=== PATIENT | female | born 1995 ===

== ENCOUNTER → 2024-04-28 | Outpatient (CLI) | payer OTHER | LOC: LAB SHORT 13:24 → LAB 13:24 | DX: O09.90 Supervision of high risk pregnancy, unspecified, unspecified trimester (principal); Z3A.00 Weeks of gestation of pregnancy not specified | CPT/HCPCS: 87081; 87150 ==

== ENCOUNTER 2024-05-19 07:00 | Inpatient (IN) | payer OTHER ==
[~2024-05-19] VITALS: Ht 162.6 cm; Wt 88.2 kg
[2024-05-19] VITALS (44 sets, daily range): BP systolic 97–147; BP diastolic 52–84
[2024-05-19] MEDS ORDERED: OXYTOCIN/RINGER'S LACTATE 500 ML IV SCH ×2 (07:20→18:00)
[2024-05-19] MEDS ORDERED: FentaNYL Citrate 50 MCG/ML 2 ML Injection IV PRN (07:20)
[2024-05-19] MEDS ORDERED: Lactated Ringer's 1,000 ML IV SCH ×4 (07:20→18:00)
[2024-05-19] MEDS ORDERED: ePHEDrine Sulfate 50 MG/ML 1ML Injection XX PRN (07:25)
[2024-05-19] MEDS ORDERED: FentaNYL 2mcg/ml-Bup 0.1% Epd 250 ML EPI PRN (07:25)
[2024-05-19 07:59] LABS: BASOPHILS ABSOLUTE AUTO 0.03 K/mm3 (0.00-0.23); BASOPHILS PERCENT AUTO 1 % (0-2); EOSINOPHILS ABSOLUTE AUTO 0.06 K/mm3 (0.00-0.68); EOSINOPHILS PERCENT AUTO 1 % (0-6); Hematocrit 37.3 % (33.0-51.0); Hemoglobin 12.9 g/dL (11.5-16.0); IMMATURE GRAN ABSOLUTE AUTO 0.02 K/mm3 (0.00-0.10); IMMATURE GRAN PERCENT AUTO 0 % (0-1); LYMPHOCYTES ABSOLUTE AUTO 1.01 K/mm3 (0.84-5.20); LYMPHOCYTES PERCENT AUTO 19 % (21-46); MONOCYTES ABSOLUTE AUTO 0.29 K/mm3 (0.16-1.47); MONOCYTES PERCENT AUTO 5 % (4-13); Mean Corpuscular HGB 31.1 pg (26.0-34.0); Mean Corpuscular HGB Conc 34.6 g/dL (31.5-36.5); Mean Corpuscular Volume 90 fL (80-100); Mean Platelet Volume 9.3 fL (9.1-12.4); NEUTROPHILS ABSOLUTE AUTO 4.02 K/mm3 (1.96-9.15); NEUTROPHILS PERCENT AUTO 74 % (41-73); Platelet Count 191 K/mm3 (150-400); RDW Coefficient Variation 13.7 % (11.7-14.2); RDW Standard Deviation 44.3 fL (35.1-46.3); Red Blood Cell Count 4.15 M/mm3 (3.80-5.20); White Blood Cell Count 5.43 K/mm3 (4.00-11.30)
[2024-05-19] MEDS ORDERED: Acetaminophen 325 MG TABLET PO PRN ×2 (08:20→18:05)
[2024-05-19] MEDS ORDERED: Calcium Carbonate 500 MG Tab Chew PO PRN (08:20)
[2024-05-19] MEDS ORDERED: Ondansetron HCl 2 MG / ML 2ML Vial IV PRN ×3 (08:20→11:45)
[2024-05-19] MEDS ORDERED: Bupivacaine HCl 2.5 MG/ML 10ML P/F Injection ONE (11:34)
[2024-05-19] MEDS ORDERED: Naloxone HCl 0.4MG / ML 1ML Vial IV PRN (11:45)
[2024-05-19] MEDS ORDERED: ePHEDrine Sulfate 50 MG/ML 1ML Injection IV PRN (11:45)
[2024-05-19] MEDS ORDERED: Ketorolac Tromethamine 30mg Vial IV PRN ×2 (11:55→17:55)
[2024-05-19] MEDS ORDERED: Tranexamic Acid 100 ML IV ONE ×2 (17:21→18:20)
[2024-05-19] MEDS ORDERED: Ibuprofen 400 MG Tab PO PRN (17:55)
[2024-05-19] MEDS ORDERED: Methylergonovine Maleate 0.2MG / ML 1ML Amp IM PRN (18:00)
[2024-05-19] MEDS ORDERED: Lanolin Cream TOP PRN (18:00)
[2024-05-19] MEDS ORDERED: Docusate Sodium 100 MG Cap PO PRN (18:00)
[2024-05-19] MEDS ORDERED: Witch Hazel/Glycerin PADS TOP PRN (18:00)
[2024-05-19] MEDS ORDERED: FLU VACC TS2024-25(6MOS UP)/PF 45 MCG/0.5 ML SYRINGE IM SCH (18:00)
[2024-05-19] MEDS ORDERED: Benzocaine Topical Anesthetic Spray 60GM TOP PRN (18:05)
[2024-05-19] MEDS ORDERED: Misoprostol 200 MCG Tab BC PRN (18:20)
[2024-05-19] MEDS ORDERED: Misoprostol 200 MCG Tab PO ONE (19:00)
[2024-05-19] MEDS ORDERED: Methylergonovine Maleate 0.2MG / ML 1ML Amp IM ONE (19:00)
--- NOTE | 2024-05-19 19:29 | NUR ---
AGREE WITH ASSESSMENT AND CHARTING [facility]
[2024-05-20 04:46] VITALS: BP 127/79
[2024-05-20 06:26] LABS: Hematocrit 33.9 % (33.0-51.0); Hemoglobin 11.7 g/dL (11.5-16.0); Mean Corpuscular HGB 31.2 pg (26.0-34.0); Mean Corpuscular HGB Conc 34.5 g/dL (31.5-36.5); Mean Corpuscular Volume 90 fL (80-100); Mean Platelet Volume 9.4 fL (9.1-12.4); Platelet Count 150 K/mm3 (150-400); RDW Coefficient Variation 13.8 % (11.7-14.2); Red Blood Cell Count 3.75 M/mm3 (3.80-5.20); White Blood Cell Count 10.56 K/mm3 (4.00-11.30)
[2024-05-20] MEDS ORDERED: Prenatal Vit/FE Fumarate/FA 1 Tab PO SCH (09:00)
[2024-05-20 09:40] VITALS: BP 127/77
[2024-05-20 11:22] VITALS: BP 135/60
[2024-05-20 17:48] VITALS: BP 132/71
== END 2024-05-20 18:55 | disposition home or self-care (01) | DRG 807 ==
LOC: OBS 07:00 → BC 07:04 → OBS 07:11 → BC 07:13
PROVIDERS: ADMIT Advanced Practice Midwife
PROC: 10E0XZZ Delivery of Products of Conception, External Approach (ICD-10-PCS; principal; 2024-05-19)
PROC: 3E0R3BZ Introduction of Anesthetic Agent into Spinal Canal, Percutaneous Approach (ICD-10-PCS; 2024-05-19)
PROC: 00HU33Z Insertion of Infusion Device into Spinal Canal, Percutaneous Approach (ICD-10-PCS; 2024-05-19)
DX: O48.0 Post-term pregnancy (principal); Z37.0 Single live birth; Z3A.40 40 weeks gestation of pregnancy; O99.214 Obesity complicating childbirth; Z90.49 Acquired absence of other specified parts of digestive tract; O99.345 Other mental disorders complicating the puerperium; F53.0 Postpartum depression; O70.0 First degree perineal laceration during delivery
CPT/HCPCS: 36415; 51702; 85025; 85027; 86850; 86900; 86901; 86923; A9270; J1885; J2210; J2405; J2590; J7120

== ENCOUNTER → 2024-06-29 | Outpatient (CLI) | payer OTHER | END | disposition home or self-care (01) | LOC: LAB 15:23 → LAB SHORT 15:23 | PROVIDERS: Advanced Practice Midwife | DX: Z01.419 Encounter for gynecological examination (general) (routine) without abnormal findings (principal) | CPT/HCPCS: G0123 ==

== ENCOUNTER → 2024-07-17 | Outpatient (CLI) | payer OTHER ==
[2024-07-17 14:18] LABS: Bacterial Vaginosis PCR Negative (NEGATIVE); Candida Group, PCR NOT DETECTED (NOT DETECT); Candida glabrata-krusei, PCR NOT DETECTED (NOT DETECT)
== END ==
LOC: LAB 10:04 → LAB SHORT 10:04
PROVIDERS: Advanced Practice Midwife
DX: N89.8 Other specified noninflammatory disorders of vagina (principal)
CPT/HCPCS: 81515